=== PATIENT | male | born 1980 | race Caucasian/White ===

== ENCOUNTER 2017-03-08 18:35 | Emergency (ER) | payer SELFPAY ==
--- NOTE | 2017-03-08 18:59 | EDPHY ---
H & P Smoking Status: Heavy smoker Time Seen by Provider: 03/08/17 18:44 HPI/ROS: CHIEF COMPLAINT: Chest pain HISTORY OF PRESENT ILLNESS: This patient is a homeless 36 year old male with history of asthma complaining of chest pain. Onset of chest pain this evening while he was walking [place]. The chest discomfort was sharp, bilateral, and localized to his lower chest. The pain increased with deep inspiration. Currently, the cp remains but is less severe. He has history of asthma and has run out of his inhaler. He is a current smoker. He denies recent cold or illness. He denies known history of heart problems, hypertension, diabetes. He endorses history of a coronary event in his father at age 45. At the end of my interview, the patient states he has run out of his psychiatric medications including Remeron, Zyprexa, and gabapentin. He is currently travelling through [place] and hitchhiked here from [facility]. According to the patient's nurse, he was discharged from [facility] yesterday. REVIEW OF SYSTEMS: A 10 point review of systems was performed and is negative with the exception of the elements mentioned in the history of present illness. (Maryann Garcia) Past Medical/Surgical History: Asthma Depression Bipolar disorder Jaw surgery (Maryann Garcia) Social History: Homeless. Heavy tobacco use. Recently travelled to [place] from [facility]. ( Maryann Garcia) Physical Exam: General Appearance: Alert, pleasant Eyes: Pupils equal and round, no conjunctival pallor or injection ENT, Mouth: Mucous membranes moist Neck: Normal inspection Respiratory: Lungs are clear to auscultation Cardiovascular: Regular rate and rhythm Gastrointestinal: Abdomen is soft and non-tender Neurological: A&O, nonfocal exam Skin: Warm and dry, no rash Extremities: Nontender, no pedal edema Psychiatric: Mood and affect normal (Maryann Garcia) Constitutional: Initial Vital Signs Temperature (C) 36.7 C 03/08/17 18:38 Heart Rate 106 H 03/08/17 18:38 Respiratory Rate 18 03/08/17 18:38 Blood Pressure 139/86 H 03/08/17 18:38 O2 Sat (%) 98 03/08/17 18:38 O2 Delivery Mode Room Air Allergies/Adverse Reactions: tramadol [From Ultram] Allergy (Verified 03/08/17 18:41) Home Medications: Medication Instructions Recorded NK [No Known Home Meds] 03/08/17 Medical Decision Making - Diagnostics Imaging: I viewed and interpreted images myself - Diagnostics Imaging Results: CXR: NAD (Maryann Garcia) ED Course/Re-evaluation: 36 y/o male with history of asthma presents with complaint of chest pain. Exam unremarkable. EKG NSR, no ST/T changes. Plan for chest x-ray. Patient additionally states he is out of medication, though he was reportedly discharged from inpatient behavioral health services yesterday. Chest x-ray negative for pneumonia. Results d/w patient. Plan to d/c home in good condition. He is comfortable with this plan. Upon discharge of this patient, he went to the waiting room and then complained of a suicidal ideation. He became quite belligerent and threatening. He was taken back to room 20 for mental health evaluation. I suspect that he is malingering. He denies cp now. (Maryann Garcia) Differential Diagnosis: Differential diagnosis includes though it is not limited to pneumonia, pneumothorax, pulmonary embolism, aortic dissection, pericarditis, acute coronary syndrome. (Maryann Garcia) Other Provider: I assumed care of this patient from Dr. Garcia at 9:00 p.m.. Mental health evaluation pending. His care will be transferred to Dr. Liz at 11:45 p.m.. (Ivelisse Zaragoza) 6:40 a.m.- The patient has remained stable throughout my shift. He was evaluated by the mental health worker and she is recommended admission for the patient. They are currently looking for placement. Anticipate the case will be signed out at 7:00 a.m. to the oncoming provider Dr. Urias. (Lenora Liz) Patient accepted to [facility] psychiatric facility. Accepting MD is Dr. Looney. Patient has remained stable over the course of my shift. (Octavio Urias) - Data Points Laboratory Results: Laboratory Results 03/08/17 20:00 03/08/17 20:00 Departure - Departure Disposition: Other Psych, Not [facility] Clinical Impression: Chest pain, Suicidal ideation Condition: Good Instructions: Chest Pain (ED), Suicide Prevention for Adults (ED) Additional Instructions: Follow-up with a primary care provider within 2-3 days. Return to the Emergency Department for fever, chest pain, shortness of breath, increasing pain or other worsening of condition. [facility] has walk-in appointments for the homeless at the following days/locations. No appointment is needed. Monday 8-10am @ [facility] 11AM-1PM @ [facility] Monday 8-10:30AM @ [facility] Monday 8-10 AM @ [facility] 2-4PM @ [facility] Monday 8-10AM @ [facility] Referrals: [facility],. [Clinic] - As per Instructions [facility],. [Clinic] - As per Instructions Report Scribed for: Maryann Garcia Report Scribed by: Radha Griffin Date of Report: 03/08/17 Time of Report: 19:02 Physician Review and Approval Statement: 03/08/17 19:02 Portions of this note were transcribed by a medical device sales. I personally performed a history, physical exam, medical decision making, and confirmed accuracy of information the transcribed note. (Maryann Garcia)
[2017-03-08 20:17] VITALS: RESP 16
[2017-03-08 20:48] LABS: PLATELET COUNT 281 10^3/uL (150-400)
[2017-03-09 08:22] VITALS: TEMP 98.1
[2017-03-09 09:11] VITALS: BP 124/98; PULSE 90; O2SAT 98
== END 2017-03-09 10:27 ==
LOC: EDUNIT#
DX: R07.9 Chest pain, unspecified (principal); R45.851 Suicidal ideations; J45.909 Unspecified asthma, uncomplicated; F17.200 Nicotine dependence, unspecified, uncomplicated
CPT/HCPCS: 80305; G0480